=== PATIENT | female | born 1935 | race African-American/Black ===

== ENCOUNTER 2018-08-03 11:56 | Emergency (ER) | payer OTHER ==
[2018-08-03 12:06] VITALS: TEMP 97.9; BMI 22.5
--- NOTE | 2018-08-03 12:07 | PDOC ---
History of Present Illness - General Chief Complaint: Injury Stated Complaint: Injury Time Seen by Provider: 08/03/18 12:06 - History of Present Illness Initial Comments: 08/03/18 12:36 The patient is an 82 year old female with a history of HTN, HLD, DM, Afib on Pradaxa who presents for evaluation following an fall. The patient states that she usually ambulates with a cane and lost her balance while walking yesterday at her NH resulting in a fall. She states that she hit the back of her head but denies any LOC. She notes a small "bump" to her head since then prompting her presentation to the ED for further evaluation. She otherwise denies headache, vision changes, neck pain, SOB, chest pain, nausea, vomiting, abdominal pain, numbness, tingling, weakness, or changes with urination or bowel movements. She states that she is currently asymptomatic. Past History - Past Medical History Allergies/Adverse Reactions: Allergies Allergy/AdvReac Type Severity Reaction Status Date / Time No Known Allergies Allergy Verified 08/03/18 12:01 Home Medications: Ambulatory Orders Amitriptyline HCl [Elavil -] 25 mg PO DAILY 10/01/13 Atenolol [Tenormin -] 50 mg PO DAILY 10/01/13 Atorvastatin Ca [Lipitor -] 20 mg PO HS 10/01/13 Calcium Carbonate/Vitamin D3 [Calcium + Vitamin D Tablet] 1 each PO DAILY Dabigatran Etexilate Mesylate [Pradaxa -] 150 mg PO BID 10/01/13 Hydrochlorothiazide [Hctz -] 12.5 mg PO DAILY 10/01/13 Albuterol Sulfate [Proair Hfa -] 1 - 2 inh PO TID 12/07/13 Amlodipine Besylate [Norvasc -] 10 mg PO DAILY 12/07/13 Haloperidol [Haldol -] 0.5 mg PO BID 12/07/13 Loratadine [Claritin -] 10 mg PO DAILY 12/07/13 metFORMIN HCL [Metformin HCl ER] 500 mg PO DAILY 12/07/13 Asthma: Yes Cardiac Disorders: Yes (ENLARGED HEART, a-fib) COPD: Yes Diabetes: Yes HTN: Yes Hypercholesterolemia: Yes Psychiatric Problems: Yes (ANXIETY) - Surgical History Cardiac Surgery: Yes (CATH, NO STENTS) - Immunization History Immunization Up to Date: Yes - Suicide/Smoking/Psychosocial Hx Smoking Status: No Smoking History: Never smoked Have you smoked in the past 12 months: No Number of Cigarettes Smoked Daily: 0 Hx Alcohol Use: No Drug/Substance Use Hx: No Substance Use Type: None Hx Substance Use Treatment: No Review of Systems - Review of Systems Comments:: 08/03/18 12:39 Constitutional: No fevers, chills, fatigue, malaise HEENT: Head Trauma. No Rhinorrhea, nasal congestion, visual changes Cardiovascular: No chest pain, syncope, palpitations, lightheadedness Respiratory: No Cough, SOB, Hemoptysis, Gastrointestinal: No Abdominal pain, Nausea, Vomiting, Constipation, Diarrhea, Melena Genitourinary: No Dysuria, Frequency, Urgency, Hesitancy, Hematuria, Flank pain Musculoskeletal: No Myalgia, arthralgia Skin: No rashes, itching, bruising, pallor Neurologic: No Headache, Dizziness, Numbness, Weakness, or Tingling Psychiatric: No Hallucinations. No SI or HI *Physical Exam - Vital Signs Last Vital Signs Temp Pulse Resp BP Pulse Ox 97.9 F 58 L 18 170/80 99 08/03/18 12:02 08/03/18 12:02 08/03/18 12:02 08/03/18 12:02 08/03/18 12:02 - Physical Exam Comments: 08/03/18 12:39 General Appearance: Nourished. No Apparent Distress HEENT: EOMI, BRIANA. No Pharyngeal Erythema, Tonsillar Exudate, Tonsillar Erythema Neck: No Cervical Lymphadenopathy or C-spine Tenderness Respiratory/Chest: Lungs Clear, Normal Breath Sounds. No Crackles, Rales, Rhonchi, Wheezing Cardiovascular: Regular Rhythm, Regular Rate. No Murmur, Gallops, Rubs Gastrointestinal/Abdominal: Normal Bowel Sounds, Soft. No Guarding, Rebound, Tenderness Musculoskeletal: No CVA Tenderness Extremity: Normal Capillary Refill Integumentary: Normal Color, Dry, Warm Neurologic: financial advocate II-XII NML intact, Fully Oriented, Alert, Normal Mood/Affect, Normal Response, Motor Strength 5/5. Normal Finger to Nose and Heel to [place] Medical Decision Making - Medical Decision Making 08/03/18 12:40 The patient is an 82 year old female with a history of HTN, HLD, DM, Afib on Pradaxa who presents for evaluation following an fall. Given the patient's history and physical exam, we will obtain a head and cervical spine Ct to evaluate further. We will continue to monitor and reassess while here in the ED. 08/03/18 14:[address] do not demonstrate any acute pathology as read by our radiologist. We are comfortable discharging the patient home in stable condition. Patient and family made aware of impression and plan, return precautions discussed including but not limited to worsening pain or symptoms, fevers, or signs of infection, chest pain, respiratory distress, inability to tolerate oral intake, dehydration, syncope, or neurologic changes. The patient is to follow up with PMD as recommended within 1 week, follow up information provided and the patient will call for an appointment. The patient is to take medications as instructed for duration of time and continue with supportive care , avoid triggers and precipitants. Patient is safe for outpatient follow-up. *DC/Admit/Observation/Transfer Diagnosis at time of Disposition: Fall Qualifiers: Encounter type: initial encounter Qualified Code(s): W19.XXXA - Unspecified fall, initial encounter - Discharge Dispostion Disposition: HOME Condition at time of disposition: Stable Decision to Admit order: No - Referrals Referrals: Lanny Huang MD [Primary Care Provider] - - Patient Instructions Printed Discharge Instructions: How to Prevent Falls Additional Instructions: 1) Please follow-up with your primary care doctor in the next 2-3 days. Please call tomorrow to schedule a follow up appointment. If you cannot follow up with your doctor within 1 week please return to the Emergency Department for any urgent issues. 2) Your imaging results were normal here in the ER. 3) If you have any worsening of symptoms or any other concerns please return to the ER immediately. Return if worsening symptoms including fevers, headache, vomiting, visual or hearing disturbances, abdominal pain, chest pain, shortness of breath, syncope, dehydration, inability to take things by mouth/vomiting, altered mental status, or worsening concerning symptoms. 4) Please continue taking your home medications as directed. Side effects may include upset stomach, abdominal pain, vomiting, or diarrhea. Do not drink alcohol with your medications. - Post Discharge Activity
--- NOTE | 2018-08-03 13:05 | PDOC ---
Documentation entered by Jomar More SCRIBE, acting as scribe for Debbie Morales MD. Debbie Morales MD: This documentation has been prepared by the Derik reyes Joel, SCRIBE, under my direction and personally reviewed by me in its entirety. I confirm that the documentation accurately reflects all work, treatment, procedures, and medical decision making performed by me. Attending Attestation - Resident Resident Name: Juancarlos Bearden - ED Attending Attestation I have performed the following: I have examined & evaluated the patient, The case was reviewed & discussed with the resident, I agree w/resident's findings & plan - HPI HPI: 08/03/18 12:29 The patient is an 82 year old female with a significant PMH of HTN, DM, hyperlipidemia, Afib on AC, COPD, who presents to the emergency department from [facility] for evaluation s/p fall. The patient states she was walking with her cane yesterday and lost balance, falling and hitting her head. The patient denies LOC. She denies headache and dizziness. The patient denies chest pain, shortness of breath. no other associated injuries Allergies: NKA Past surgical history: Cardiac cath. Social history: No reported cigarette, alcohol, or drug use. PCP: Dr. Ly uHang 08/03/18 13:04 - Physicial Exam PE: 08/03/18 13:01 Agree with the resident's HPI and PE as documented in the electronic medical record. GCS 15. NAD, well appearing, NCAT, EOMI, PERRL, nl conjunctiva, anicteric; neck supple. no c spine tenderness. lungs clear, RRR, abdomen soft nontender. Back nontender. MONIQUE x4, no focal neuro deficits. No peripheral edema. normal color for ethnicity, WWP. speech clear. - Medical Decision Making 08/03/18 13:03 See HPI for details. Prior notes reviewed, including admissions, discharges and consultations. Vital signs reviewed, wnl. Trauma ddx: ICH, SDH/ EDH, C spine injury/strain, contusion. No evidence of skull fracture, intracranial bleed, dental trauma, cervical, thoracic, or vertebral fracture or subluxation, no suspicion of thoracic, abdominal, pelvic or extremity injury by exam. CT head/C spine neg for fx/bleed, degenerative changes, chronic microvascular changes. declines analgesia BP mildly elevated, h/o htn, can clinically recheck as outpatient, already on antihypertensive meds and took this am asymptomatic, neuro intact. Pt to be discharged in stable condition back to [facility]. Patient made aware of clinical impression, treatment recommendations and disposition plan, return precautions discussed (including but not limited to new or persistent/worsening symptoms, pain, fevers, or signs of infection, chest pain, respiratory distress , inability to tolerate oral intake, dehydration, syncope, or neurologic changes ). Follow up with PMD as recommended, follow up information provided, take medications as instructed for duration of time. continue with supportive care, avoid triggers and precipitants. All questions answered to patient's satisfaction and expressed understanding and comfort with this. At the time of discharge, the patient is alert, clinically improved, tolerating po and verbalizes understanding of instructions, satisfied with the care received and felt comfortable with the plan. Patient does not suffer from an acute life- threatening medical condition at this time and is safe for outpatient follow- up. 08/03/18 14:18
[2018-08-03 16:27] VITALS: BP 142/76; PULSE 63
== END 2018-08-03 16:05 ==
LOC: JER 11:56
DX: S09.8XXA Other specified injuries of head, initial encounter (principal); W01.0XXA Fall on same level from slipping, tripping and stumbling without subsequent striking against object, initial encounter; Y93.89 Activity, other specified; Y92.128 Other place in nursing home as the place of occurrence of the external cause; Y99.8 Other external cause status; I25.10 Atherosclerotic heart disease of native coronary artery without angina pectoris; Z98.61 Coronary angioplasty status; I10 Essential (primary) hypertension; I48.91 Unspecified atrial fibrillation; Z79.01 Long term (current) use of anticoagulants; E78.5 Hyperlipidemia, unspecified; E11.9 Type 2 diabetes mellitus without complications; J44.9 Chronic obstructive pulmonary disease, unspecified; J45.909 Unspecified asthma, uncomplicated; Z79.84 Long term (current) use of oral hypoglycemic drugs; Z99.89 Dependence on other enabling machines and devices
CPT/HCPCS: 70450-TC; 72125-TC; 99282-25

== ENCOUNTER 2019-08-02 21:20 | Emergency (ER) | payer OTHER ==
[2019-08-02 21:44] VITALS: TEMP 98.6; BMI 20.5
[2019-08-02 22:32] LABS: BASO % 1.2 % (0-2.0); EOS % 1.3 % (0-4.5); HEMATOCRIT 32.4 % (32.4-45.2); HEMOGLOBIN 10.7 GM/dL (10.7-15.3); LYMPH % 42.4 % (8-40); MCH 33.9 pg (25.7-33.7); MEAN CELL VOLUME 102.7 fl (80-96); MEAN PLT VOLUME 9.3 fl (7.5-11.1); MONO % 10.1 % (3.8-10.2); PLATELET COUNT 250 K/MM3 (134-434); RBC 3.15 M/mm3 (3.60-5.2); RDW 14.6 % (11.6-15.6); WHITE BLOOD COUNT 5.7 K/mm3 (4.0-10.0)
[2019-08-02 23:07] LABS: ALBUMIN 2.9 g/dl (3.4-5.0); BILIRUBIN,TOTAL 0.2 mg/dL (0.2-1); BLOOD UREA NITROGEN 11.9 mg/dL (7-18); CALCIUM 8.7 mg/dL (8.5-10.1); CREATININE 0.6 mg/dL (0.55-1.3); POTASSIUM 4.1 mmol/L (3.5-5.1); TOT PROT 5.9 g/dl (6.4-8.2)
[2019-08-03 00:09] VITALS: BP 105/62; PULSE 68
== END 2019-08-03 01:30 | disposition home or self-care (01) ==
LOC: JER 21:20
DX: Z04.3 Encounter for examination and observation following other accident (principal); W19.XXXA Unspecified fall, initial encounter
CPT/HCPCS: 36415; 70450-TC; 72125-TC; 80053; 85025; 99284-25

== ENCOUNTER 2019-08-07 04:51 | Emergency (ER) | payer OTHER ==
[2019-08-07 05:04] VITALS: BP 137/80; PULSE 93; TEMP 98.4; BMI 24.3
[2019-08-07] MEDS ORDERED: ACETAMINOPHEN 325 MG TABLET (FP) PO ONE (06:15)
[2019-08-07] MEDS ORDERED: ACETAMINOPHEN 325 MG TABLET (FP) ONE (06:19)
== END 2019-08-07 06:53 ==
LOC: JER 04:51
DX: S09.90XA Unspecified injury of head, initial encounter (principal); W19.XXXA Unspecified fall, initial encounter
CPT/HCPCS: 70450-TC; 72125-TC; 99284-25